=== PATIENT | female | born 1980 | race Caucasian/White ===

== ENCOUNTER 2017-03-21 17:39 | Emergency (ER) | payer OTHER ==
[~2017-03-21] VITALS: Ht 157.5 cm; Wt 93.8 kg
[2017-03-21 20:52] VITALS: BP 163/100
== END 2017-03-21 20:53 | disposition home or self-care (01) ==
LOC: EME 17:39
DX: S86.111A Strain of other muscle(s) and tendon(s) of posterior muscle group at lower leg level, right leg, initial encounter (principal); F32.9 Major depressive disorder, single episode, unspecified
CPT/HCPCS: 99281; 99283